=== PATIENT | female | born 1950 | race Caucasian/White ===

== ENCOUNTER 2017-08-12 19:36 | Emergency (ER) | payer MEDICARE, OTHER ==
[2017-08-12 19:38] VITALS: BP 209/83; PULSE 98; RESP 16; TEMP 97.7; O2SAT 99
[2017-08-12 21:30] LABS: AUTOMATED NEUTROPHIL # 1.3 TH/MM3 (1.8-7.7); EOSINOPHIL # 0.1 TH/MM3 (0-0.4); EOSINOPHIL % 2.3 % (0.0-4.0); HEMATOCRIT 30.6 % (35.0-46.0); LYMPH % 31.5 % (9.0-44.0); LYMPHOCYTE # 0.7 TH/MM3 (1.0-4.8); MEAN CELL VOLUME 97.1 FL (80.0-100.0); MEAN CORPUSCULAR HEMOGLOBIN 31.6 PG (27.0-34.0); MEAN CORPUSCULAR HGB CONC 32.5 % (32.0-36.0); MONO % 10.5 % (0.0-8.0); NEUT % 54.7 % (16.0-70.0); PLATELET COUNT 99 TH/MM3 (150-450); RED BLOOD COUNT 3.15 MIL/MM3 (4.00-5.30); RED CELL DISTRIBUTION WIDTH 17.5 % (11.6-17.2); WHITE BLOOD COUNT 2.4 TH/MM3 (4.0-11.0)
[2017-08-12 21:32] LABS: HEMO FLAGS AUTO DIFF
[2017-08-12 21:34] LABS: BACTERIA, URINE FEW /hpf; BLOOD, URINE MOD (NEG); COMMENT (UR) CULTURE INDICATED; CULTURE IF INDICATED CULTURE INDICATED; GLUCOSE,URINE NEG (NEG); KETONE, URINE NEG (NEG); NITRITE,URINE NEG (NEG); SQUAMOUS EPITHELIAL CELL URINE 1 /hpf (0-5); TRANSITIONAL EPI CELLS, URINE 1 /hpf; URINE COLOR YELLOW (YELLW/STRAW)
[2017-08-12 21:41] LABS: APTT (PATIENT) 30.8 SEC (24.3-30.1); PROTHROMBIN TIME - PATIENT 11.5 SEC (9.8-11.6)
[2017-08-12 21:52] LABS: BICARBONATE 23.7 MEQ/L (21.0-32.0); MAGNESIUM 2.3 MG/DL (1.5-2.5); POTASSIUM 4.3 MEQ/L (3.5-5.1)
--- NOTE | 2017-08-12 21:52 | RADRPT ---
EXAM DATE/TIME: 08/12/2017 20:16 [facility] COMPARISON: No previous studies available for comparison. INDICATIONS : Palpitations since this morning. MEDICAL HISTORY : Hypertension and hypotension. SURGICAL HISTORY : [place]. ENCOUNTER: Initial ACUITY: 1 day PAIN SCORE: 0/10 LOCATION: Bilateral chest FINDINGS: PA and lateral views of the chest demonstrate the lungs to be symmetrically aerated with minimal atel ectatic changes and possible small effusion in the right base. Lungs are otherwise clear with no conf luent infiltrate. Right IJ tunneled dialysis type catheter with the tip projecting over the central v enous system. Vena tech type filter projects over the expected location of the inferior vena cava. De xtroscoliosis of the lumbar spine. CONCLUSION: 1. Possible small right sided effusion with minimal lateral atelectatic changes. Lungs are otherwise clear. 2. Right IJ tunneled dialysis type catheter with the tip projecting over the central venous system. V danika cava filter. Jose Nicole MD on August 12, 2017 at 21:48 Board Certified Radiologist. This report was verified electronically.
[2017-08-12 21:54] LABS: OVALOCYTES 1+ (NORMAL)
[2017-08-12 21:55] LABS: PLATELET ESTIMATE SMEAR LOW (NORMAL); PLATELET MORPHOLOGY NORMAL (NORMAL); SCAN/DIFF AUTO DIFF CONFIRMED
--- NOTE | 2017-08-12 22:02 | PD ---
HPI Chief Complaint: General Weakness Time Seen by Provider: 22:01 Travel History International Travel<30 days: No Contact w/Intl Traveler<30days: No Traveled to known affect area: No History of Present Illness HPI The patient is a 67 year old female who presents to the [facility] emergency department with a history of increased confusion/disorientation that began yesterday. The patient presents with her significant other. He reports that he helps to care for her. He reports that she has had some problems with memory and confusion in the past. He reports that she is in the process of being worked up for possible dementia. She is a hemodialysis patient. She missed her dialysis today due to her seat being taken by a local patient. She is visiting from [place]. They are on there way to [place]. They have arranged for dialysis in [place]. Her significant other reports that she normally maintains her blood pressure with eating well. He reports that she has had many dietary indiscretions due to the . On review of systems otherwise, the patient denies having any headache or neck pain, recent fevers, cough, congestion, neck pain, chest pain, shortness of breath, abdominal pain, vomiting , diarrhea, urinary symptoms, or other neurologic symptoms. [facility] Past Medical History Narrative Medical The patient's past medical history is significant for chronic renal failure on hemodialysis over the last year, history of congestive heart failure, history of hypertension that she reports is managed with diet, history of alcohol abuse with no intake of alcohol since August 2016. Past Surgical History Narrative Surgical The patient's past surgical history is significant for a vas catheter placement in the right side of her chest. Social History Alcohol Use: No Tobacco Use: No Substance Use: No Allergies-Medications (Allergen,Severity, Reaction): Coded Allergies: No Known Allergies (Unverified , 08/12/17) Narrative Medication Low-dose aspirin daily, dietary supplements. Review of Systems Except as stated in HPI: all other systems reviewed are Neg General / Constitutional: No: Fever Eyes: No: Visual changes HENT: No: Headaches, Congestion, Neck Stiffness, Neck Pain Cardiovascular: No: Chest Pain or Discomfort Respiratory: No: Cough, Shortness of Breath Gastrointestinal: No: Abdominal Pain Genitourinary: No: Dysuria Musculoskeletal: No: Pain Skin: No Rash Neurologic: Positive: Change in Mentation, No: Weakness, Focal Abnormalities, Slurred Speech, Sensory Disturbance Psychiatric: No: Depression Endocrine: No: Polydipsia Hematologic/Lymphatic: No: Easy Bruising Physical Exam Narrative General: The patient is a well-developed well-nourished female in no acute distress. Head and Neck exam: Head is normocephalic atraumatic. Eyes: EOMI, pupils are equal round and reactive to light. Nose: Midline septum with pink mucous membranes Mouth: Dentition unremarkable. Moist mucus membranes. Posterior oropharynx is not erythematous. No tonsillar hypertrophy. Uvula midline. Airway patent. Neck: No palpable lymphadenopathy. No nuchal rigidity. No thyromegaly. Cardiovascular: Regular rate and rhythm with a 2/6 systolic murmur, no gallops or rubs. No pulse deficit to the extremities on simultaneous auscultation and palpation of her radial artery. Lungs: Clear to auscultation bilaterally. No wheezes, rhonchi, or rales. Abdomen: Soft, without tenderness to palpation in all 4 quadrants of the abdomen. No guarding, rebound, or rigidity. Normal bowel sounds are audible. No tenderness on palpation of McBurney's point. Extremities: No clubbing, cyanosis, or edema. 2+ pulses in all 4 extremities. No Tenderness on palpation. Back: No spinous process tenderness to palpation. No costovertebral angle tenderness to palpation. Neurologic Exam: Cranial nerves 2-12 were intact on exam. Strength is 5/5 in all 4 extremities. No sensory deficits noted. The patient is oriented to person, place, time, and situation. Skin Exam: No rash noted. Intact skin that is warm and dry. Data Data Last Documented VS Vital Signs Date Time Temp Pulse Resp B/P (MAP) Pulse Ox O2 Delivery O2 Flow Rate FiO2 08/12/17 22:48 90 20 200/81 (120) 97 Room Air 08/12/17 19:38 97.7 Orders Orders Electrocardiogram (08/12/17 19:58) Basic Metabolic Panel (Bmp) (08/12/17 19:58) Complete Blood Count With Diff (08/12/17 19:58) Magnesium (Mg) (08/12/17 19:58) B-Type Natriuretic Peptide (08/12/17 19:58) Act Partial Throm Time (Ptt) (08/12/17 19:58) Prothrombin Time / Inr (Pt) (08/12/17 19:58) Urinalysis - C+S If Indicated (08/12/17 19:58) Chest, Pa & Lat (08/12/17 19:58) Urine Culture (08/12/17 20:50) Ct Brain W/O Iv Contrast(Rout) (08/12/17 22:57) Labs Laboratory Tests Test 08/12/17 20:50 White Blood Count 2.4 TH/MM3 Red Blood Count 3.15 MIL/MM3 Hemoglobin 10.0 GM/DL Hematocrit 30.6 % Mean Corpuscular Volume 97.1 FL Mean Corpuscular Hemoglobin 31.6 PG Mean Corpuscular Hemoglobin Concent 32.5 % Red Cell Distribution Width 17.5 % Platelet Count 99 TH/MM3 Mean Platelet Volume 7.5 FL Neutrophils (%) (Auto) 54.7 % Lymphocytes (%) (Auto) 31.5 % Monocytes (%) (Auto) 10.5 % Eosinophils (%) (Auto) 2.3 % Basophils (%) (Auto) 1.0 % Neutrophils # (Auto) 1.3 TH/MM3 Lymphocytes # (Auto) 0.7 TH/MM3 Monocytes # (Auto) 0.2 TH/MM3 Eosinophils # (Auto) 0.1 TH/MM3 Basophils # (Auto) 0.0 TH/MM3 CBC Comment AUTO DIFF Differential Comment AUTO DIFF CONFIRMED Platelet Estimate LOW Platelet Morphology Comment NORMAL Ovalocytes 1+ Prothrombin Time 11.5 SEC Prothromb Time International Ratio 1.0 RATIO Activated Partial Thromboplast Time 30.8 SEC Urine Color YELLOW Urine Turbidity HAZY Urine pH 8.0 Urine Specific [place] 1.012 Urine Protein 100 mg/dL Urine Glucose (UA) NEG mg/dL Urine Ketones NEG mg/dL Urine Occult Blood MOD Urine Nitrite NEG Urine Bilirubin NEG Urine Urobilinogen LESS THAN 2.0 MG/DL Urine Leukocyte Esterase LARGE Urine RBC 6 /hpf Urine WBC /hpf Urine Squamous Epithelial Cells 1 /hpf Urine Transitional Epithelial Cells 1 /hpf Urine Bacteria FEW /hpf Microscopic Urinalysis Comment CULTURE INDICATED Blood Urea Nitrogen 51 MG/DL Creatinine 7.80 MG/DL Random Glucose 91 MG/DL Calcium Level 8.2 MG/DL Magnesium Level 2.3 MG/DL Sodium Level 139 MEQ/L Potassium Level 4.3 MEQ/L Chloride Level 106 MEQ/L Carbon Dioxide Level 23.7 MEQ/L Anion Gap 9 MEQ/L Estimat Glomerular Filtration Rate 5 ML/MIN B-Type Natriuretic Peptide 198 PG/ML MDM Medical Decision Making Medical Screen Exam Complete: Yes Emergency Medical Condition: Yes Medical Record Reviewed: Yes Differential Diagnosis Intracranial hemorrhage, versus hyperkalemia, versus uremia Narrative Course During the course of the patients emergency department visit, the patients history, examination, and differential diagnosis were reviewed with the patient. The patient was placed on a alarm security or surveillance monitor with oximetry and frequent blood pressure monitoring. The patient had IV access obtained and blood work sent for analysis. A chest x-ray was ordered. CT scan of the brain was ordered. The patients laboratory studies were reviewed and remarkable for a white count of 2.4, hemoglobin 10, platelets 99, 10.5 monocytes. Basic metabolic profile is remarkable for BUN of 51, creatinine 7.80, calcium 8.2, BNP is 198, magnesium 2.3. PT 11.5, PTT 30.8, urinalysis shows 6 rbc's, innumerable WBCs. Culture indicated with few bacteria. Radiology studies were reviewed and remarkable for a chest x-ray that showed no acute abnormality. CT scan of the brain shows no acute abnormality. Bilateral areas of encephalomalacia greater on the left, decreased density in the cerebral white matter likely related to small vessel ischemic changes. The patient will be discharged home with a prescription for Keflex for a urinary tract infection. She was instructed to follow-up for dialysis as previously scheduled in [place]. The patient is resting comfortably and feels better, is alert and in no distress. The patients results and examination findings were discussed with the patient. The repeat examination is unremarkable and benign. The history, exam, diagnostic testing, and current condition do not suggest any significant pathology to warrant further testing, continued ED treatment, admission, or surgical evaluation at this point. The vital signs have been stable. The patient does not have uncontrollable pain, intractable vomiting, or other significant symptoms. The patient's condition is stable and appropriate for discharge. The patient will pursue further outpatient evaluation with a primary care physician or other designated or consulting physician as indicated in the discharge instructions. The patient expressed understanding and was agreeable with this plan. Diagnosis Primary Impression: Generalized weakness Referrals: Dialysis 1 day Patient Instructions: General Instructions, Weakness (ED) Med/Other Pt SpecificInfo: No Change to Meds Disposition: 01 DISCHARGE HOME Condition: Stable Berta Rand MD Aug 12, 2017 22:02
[2017-08-12 22:48] VITALS: BP 200/81; PULSE 90; RESP 20; O2SAT 97
--- NOTE | 2017-08-12 23:47 | RADRPT ---
EXAM DATE/TIME: 08/12/2017 23:17 [facility] COMPARISON: No previous studies available for comparison. INDICATIONS : Weak and confused. RADIATION DOSE: 56.35 CTDIvol (mGy) MEDICAL HISTORY : Hypertension. SURGICAL HISTORY : None. ENCOUNTER: Initial ACUITY: 1 day PAIN SCALE: 0/10 LOCATION: cranial TECHNIQUE: Multiple contiguous axial images were obtained of the head. Using automated exposure control and adj ustment of the mA and/or kV according to patient size, radiation dose was kept as low as reasonably a chievable to obtain optimal diagnostic quality images. DICOM format image data is available electro nically for review and comparison. FINDINGS: CEREBRUM: The ventricles are normal for age. There is a prominent area of encephalomalacia involving the left basal ganglia and external capsule region. This extends into the white matter abutting the frontal ho rn of the left lateral ventricle and into the anterior left temporal lobe. There is also a smaller ar ea of encephalomalacia at the medial aspect of the right basal ganglia and genu of the internal capsu le on the right. There is a small lacunar infarct at the genu of the internal capsule on the left. Th ere is low-density seen throughout the cerebral white matter. No evidence of midline shift, mass lesi on, hemorrhage or acute infarction. No extra-axial fluid collections are seen. POSTERIOR FOSSA: The cerebellum and brainstem are intact. The 4th ventricle is midline. The cerebellopontine angle i s unremarkable. EXTRACRANIAL: The visualized portion of the orbits is intact. There is mucosal disease at the maxillary sinuses dylon aterally. SKULL: The calvaria is intact. No evidence of skull fracture. CONCLUSION: 1. No acute abnormality seen. 2. Bilateral areas of encephalomalacia being greater on the left. 3. Decreased density in the cerebral white matter likely related to small vessel ischemic change. Elie Hill MD on August 12, 2017 at 23:41 Board Certified Radiologist. This report was verified electronically.
[2017-08-13] MEDS ORDERED: CEPH-460 PO (00:19)
--- NOTE | 2017-08-13 15:15 | EKG ---
Date Performed: 08/12/2017 Time Performed: 20:48:19 PTAGE: 67 years EKG: ATRIAL FIBRILLATION MARKED LEFT AXIS DEVIATION SEPTAL MYOCARDIAL INFARCTION ABNORMAL ECG NO PREVIOUS TRACING DOCTOR: Princess Vergara Interpretating Date/Time 08/13/2017 15:12:58
== END 2017-08-13 00:46 | disposition home or self-care (01) ==
LOC: NEPE 19:36
DX: R53.1 Weakness (principal); G93.89 Other specified disorders of brain; R41.0 Disorientation, unspecified; I13.0 Hypertensive heart and chronic kidney disease with heart failure and stage 1 through stage 4 chronic kidney disease, or unspecified chronic kidney disease; I50.9 Heart failure, unspecified; N18.9 Chronic kidney disease, unspecified; I48.91 Unspecified atrial fibrillation; R94.31 Abnormal electrocardiogram [ECG] [EKG]; Z99.2 Dependence on renal dialysis
CPT/HCPCS: 70450; 71020; 80048; 81001; 83735; 83880; 85025; 85610; 85730; 87086; 93005